=== PATIENT | female | born 1970 ===

== ENCOUNTER 2025-03-26 05:20 | Day surgery (SDC) | payer OTHER ==
[2025-03-20 13:01] VITALS: BP 119/79
[~2025-03-26] VITALS: Ht 154.9 cm; Wt 59.9 kg
[~2025-03-26 05:20] MED LIST: FENOFIBRATE50 MG; METFORMIN HCL1000 M2 PO; MOUNJARO7.5 MG/0.5 SQ
[2025-03-26] MEDS ORDERED: POVIDONE-IODINE 118 ML BOTT TOP ONE (08:15)
[2025-03-26] MEDS ORDERED: CEFOXITIN SODIUM 2,000 MG VIAL IV ONE (08:15)
[2025-03-26] MEDS ORDERED: MONDOXYNE NL100 MG PO (09:11)
[2025-03-26] MEDS ORDERED: NAPR500T14 PO (09:11)
[2025-03-26] MEDS ORDERED: PROMETHAZINE HCL 50 MG/ML AMPUL IM ONE (09:15)
[2025-03-26] MEDS ORDERED: MORPHINE SULFATE 4 MG/ML VIAL IV PRN (09:15)
== END 2025-03-26 12:20 | disposition home or self-care (01) ==
LOC: CIR.AMB 05:20
PROVIDERS: ATTEND Obstetrics & Gynecology
DX: D25.0 Submucous leiomyoma of uterus (principal); N84.0 Polyp of corpus uteri; N92.0 Excessive and frequent menstruation with regular cycle